=== PATIENT | female | born 1960 | race Caucasian/White ===

== ENCOUNTER 2017-09-20 18:36 | Emergency (ER) | payer OTHER ==
[~2017-09-20] VITALS: Ht 162.6 cm; Wt 57.5 kg
[2017-09-20] MEDS ORDERED: SODIUM CHLORIDE 0.9% 1,000ML IVBOLUS ONE (19:00)
[2017-09-20] MEDS ORDERED: SODIUM CHLORIDE FLUSH 10ML SYR IVF ONE (19:00)
[2017-09-20 19:13] LABS: BASOPHILS # (AUTO) 0.08 x10^3/uL (0-0.1); BASOPHILS % (AUTO) 1 % (0-1); EOSINOPHILS # (AUTO) 0.12 x10^3/uL (0-0.4); EOSINOPHILS % (AUTO) 1 % (1-7); LYMPHOCYTES # (AUTO) 2.13 x10^3/uL (1-3.4); LYMPHOCYTES % (AUTO) 23 % (22-44); MD NO; MEAN CORPUSCULAR HEMOGLOBIN 30.6 pg (27.0-34.8); MEAN CORPUSCULAR HGB CONC 33.4 g/dL (32.4-35.8); MEAN CORPUSCULAR VOLUME 91.6 fL (80-100); MONOCYTES # (AUTO) 0.79 x10^3/uL (0.2-0.8); MONOCYTES % (AUTO) 9 % (2-9); NEUTROPHILS # (AUTO) 6.07 x10^3/uL (1.8-6.8); NEUTROPHILS % (AUTO) 66 % (42-75); PLATELET COUNT 340 x10^3/uL (130-400); RED BLOOD COUNT 4.56 x10^6/uL (3.82-5.3); RED CELL DISTRIBUTION WIDTH 12.9 % (9.6-15.2)
[2017-09-20 19:14] LABS: PH, VENOUS 7.378 pH (7.320-7.420)
[2017-09-20 19:20] LABS: ALBUMIN 3.7 g/dL (3.4-5.0); ANION GAP 7 mmol/L (5-15); CALCIUM 9.6 mg/dL (8.5-10.1); CHLORIDE 101 mmol/L (98-107)
[2017-09-20 19:24] LABS: ALANINE AMINOTRANSFERASE 22 U/L (12-78); ALKALINE PHOSPHATASE 90 U/L (45-117); BILIRUBIN,TOTAL 0.5 mg/dL (0.2-1.0); CREATININE 0.81 mg/dL (0.55-1.02); TOTAL PROTEIN 7.9 g/dL (6.4-8.2)
[2017-09-20] MEDS ORDERED: ASPI-515 PO (19:26)
[2017-09-20] MEDS ORDERED: INSU100V8 SQ (19:26)
[2017-09-20] MEDS ORDERED: LEVO150T5 PO (19:26)
[2017-09-20] MEDS ORDERED: VENL75TA2 PO (19:26)
[2017-09-20 19:40] LABS: ACETONE, SERUM Moderate(40mg/dL) mg/dL (Negative)
[2017-09-20 20:47] LABS: MICROSCOPIC AUTO
[2017-09-20 20:52] LABS: CULTURE INDICATED? YES
[2017-09-20 21:25] VITALS: BP 139/74
== END 2017-09-20 21:27 | disposition home or self-care (01) ==
LOC: ED 21:10
DX: E10.65 Type 1 diabetes mellitus with hyperglycemia (principal); N30.00 Acute cystitis without hematuria; R05 Cough
CPT/HCPCS: 36415; 80053; 81001; 82010; 82803; 85025; 87086; 96360; 96361; 99285; J7030